=== PATIENT | male | born 1955 | race Caucasian/White ===

== ENCOUNTER 2025-01-12 08:28 | Outpatient (REF) | payer MEDICARE, SELFPAY ==
--- NOTE | ~2025-01-12 | XR_ITS ---
EXAMINATION: XR KNEE 3 VIEWS LEFT HISTORY: M25.562 - Pain in left knee COMPARISON: There are no prior studies available for comparison. FINDINGS: Three views of the left knee are submitted. Osseous mineralization is normal. There are findings of prior ACL repair with screws in the distal femur and proximal tibia. There is no fracture or dislocation. There is moderate osteoarthritis of the medial compartment and mild osteoarthritis of the lateral compartment, with joint space narrowing and osteophyte formation. The soft tissues are unremarkable. There is no joint effusion. XR/XR knee LT 3V IMPRESSION: Degenerative changes of the left knee as described. Electronically signed by: Cal Livingston MD 01/12/2025 11:03 AM EDT
--- OUTSIDE RECORDS SUMMARY | 2025-01-13 09:09 | XMS_ITS ---
Author Organization Unknown ENCOUNTERS Encounter Performer Location Date Diagnosis Diagnosis Status Outpatient MARISSA [facility]RIST[facility] [address] [place] [address] [id number] [facility] [address] [place] [address] [id number] *Note: Encounters from your own facility or health system may be excluded. Allergies, Adverse Reactions, Alerts Allergen Type Severity Identification Date Medications Name Date Quantity Days Supplied GPI Number
== END 2025-01-12 08:29 | disposition home or self-care (01) ==
LOC: HO.HOSX 08:28
PROVIDERS: Visit Provider Orthopaedic Surgery
DX: M17.12 Unilateral primary osteoarthritis, left knee (principal)
CPT/HCPCS: 73562

== ENCOUNTER 2025-01-12 10:46 | Outpatient (AMB) | payer OTHER, MEDICARE, SELFPAY ==
--- NOTE | 2025-01-12 11:01 | A.OFFVIS_ITS ---
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 He describes his pain as sharp and severe in nature. His pain has gotten worse over the last 10 years in spite of continued non operative treatments. He has had injections in the past which gave him minimal relief. He has also undergone two anterior cruciate ligament reconstructive surgeries in the past after suffering injuries while playing soccer and basketball. He denies any fevers or chills. He has tried Tylenol and anti- inflammatory medicines which gave him minimal relief. The patient has difficulty walking even short distances because of his pain. At this point his left knee pain is interfering with his activities of daily living and his ability to sleep well through the night. Allergies No Known Allergies Allergy (Verified 01/12/25 11:05) Medication List - Last Reconciled 01/12/25 by Jack Hernandez MD No Known Home Meds Physical Exam Vital Signs: BMI result Body Mass Index 27.3 Const Other: Well-nourished well-developed very friendly male awake alert and oriented x3 in no acute distress Extrem Other: Bilateral lower extremity examination shows good capillary refill, no skin lesions noted, normal sensation light touch Left knee examination shows a minimal effusion, palpable crepitus with range of motion, pain with range of motion, range of motion from -3 degrees to 110 degrees, no instability Results Reviewed Results Reviewed: X-rays of the patient's left knee show end-stage degenerative joint disease with grade 4 [id number] arthritis, subchondral sclerosis, osteophyte formation, no acute bony abnormalities Assessment & Plan Assessment & Plan (1) Osteoarthritis of left knee: Code(s): M17.12 - Unilateral primary osteoarthritis, left knee Category: Medical Plan Mr. Camargo presents with progressively worsening left knee pain due to end-stage degenerative joint disease. I had a lengthy discussion with the patient regarding the treatment options. At this point he has failed continued non operative treatments. The risks and benefits of left total knee replacement surgery were discussed at length with the patient. The patient wishes to proceed with surgery. He will be scheduled for next available date. I will see him back just prior to his surgery to answer any final questions that he might have. He will follow up as instructed. I spent 20 minutes in reviewing the patient's records and imaging studies, seeing the patient and documenting in the medical record. Orders: Orders XR knee LT 3V Today M25.562 - Pain in left knee Coding Level of Care Code New Pt Level 3 (57187) Complex EM visit Add On G2211 Diagnoses Osteoarthritis of left knee M17.12
[2025-01-12 11:06] VITALS: BMI 27.3
== END 2025-01-12 11:46 | disposition home or self-care (01) ==
LOC: HO.HOS 10:46
PROVIDERS: Visit Provider Orthopaedic Surgery
DX: M17.12 Unilateral primary osteoarthritis, left knee (principal)
CPT/HCPCS: 99204

== ENCOUNTER → 2025-01-12 10:47 | Outpatient (BNV) | payer OTHER, MEDICARE, SELFPAY | PROVIDERS: Visit Provider Radiology Diagnostic Radiology | DX: M17.12 Unilateral primary osteoarthritis, left knee (principal) | CPT/HCPCS: 73562 ==